=== PATIENT | female | born 1965 | race Caucasian/White ===

== ENCOUNTER 2019-02-12 10:56 | Outpatient (CLI) | payer OTHER, SELFPAY ==
[2019-02-12 11:31] LABS: HCT 39.8 % (36.0-46.0); HGB 13.3 g/dL (12.0-15.5); Mean Corp. HGB Concentration 33.4 g/dL (32.0-36.0); Mean Corpuscular Hemoglobin 29.2 pg (27.0-33.0); Mean Corpuscular Volume 87.3 fL (80-95); Mean Platelet Volume 10.2 fL (8.0-11.0); Platelet Count 274 x1000/uL (130-400); RBC 4.56 m/cumm (4.00-5.20); RBC Distribution Width 12.7 % (11.7-14.6); White Blood Cell Count 5.91 k/cumm (4.4-10.8)
[2019-02-12 12:22] LABS: ALT 28 U/L (12-78); AST 19 U/L (15-37); Albumin 3.7 g/dL (3.4-5.0); Alkaline Phosphatase 83 U/L (46-116); Anion Gap 7.8 mmol/L (3-11); BUN 15 mg/dL (7-18); Bilirubin, Total 0.5 mg/dL (0.2-1.0); C-Reactive Protein 0.88 mg/dL (0.0-0.3); CO2 29.2 mmol/L (21.0-32.0); Chloride 102 mmol/L (98-107); Glucose 88 mg/dL (70-100); Potassium 3.5 mmol/L (3.5-5.1); Sodium 139 mmol/L (136-145); Total Protein 6.8 g/dL (6.4-8.2)
[2019-02-12 13:18] LABS: ESR 20 MM/HR (0-30)
== END 2019-02-12 11:16 ==
PROVIDERS: PCP Family Medicine; Visit Provider Internal Medicine Rheumatology
DX: M45.9 Ankylosing spondylitis of unspecified sites in spine (principal); Z79.899 Other long term (current) drug therapy
CPT/HCPCS: 36415; 80053; 85027; 85652; 86140

== ENCOUNTER 2019-07-12 10:30 | Outpatient (CLI) | payer OTHER, SELFPAY ==
[2019-07-12 15:39] LABS: Abs Immature Grans 0.01 k/cumm (0.0-0.09); Absolute Basophil Count 0.03 k/cumm (0.0-0.2); Absolute Eosinophil Count 0.12 k/cumm (0.0-0.7); Absolute Lymphocyte Count 1.53 k/cumm (1.2-3.4); Absolute Monocyte Count 0.65 k/cumm (0.11-0.7); Basophils % 0.5; HCT 38.6 % (36.0-46.0); HGB 12.9 g/dL (12.0-15.5); Immature Grans % 0.2; Lymphocytes % 25.3; Mean Corp. HGB Concentration 33.4 g/dL (32.0-36.0); Mean Corpuscular Hemoglobin 30.4 pg (27.0-33.0); Mean Platelet Volume 10.3 fL (8.0-11.0); Monocytes % 10.8; Neutrophils % 61.2; Platelet Count 298 x1000/uL (130-400); RBC 4.24 m/cumm (4.00-5.20); RBC Distribution Width 13.2 % (11.7-14.6); White Blood Cell Count 6.04 k/cumm (4.4-10.8)
[2019-07-12 16:13] LABS: ALT 27 U/L (14-59); Albumin 3.6 g/dL (3.4-5.0); Alkaline Phosphatase 87 U/L (46-116); Anion Gap 6.7 mmol/L (3-11); BUN 13 mg/dL (7-18); Bilirubin, Total 0.2 mg/dL (0.2-1.0); CO2 31.3 mmol/L (21.0-32.0); CREATININE 0.63 mg/dL (0.55-1.02); Calcium 8.5 mg/dL (8.5-10.1); Chloride 105 mmol/L (98-107); Glucose 82 mg/dL (70-100); Sodium 143 mmol/L (136-145); Total Protein 6.6 g/dL (6.4-8.2)
[2019-07-12 16:45] LABS: AST 30 U/L (15-37)
== END 2019-07-12 10:50 ==
PROVIDERS: PCP Family Medicine; Visit Provider Internal Medicine Rheumatology
DX: M45.9 Ankylosing spondylitis of unspecified sites in spine (principal); Z15.89 Genetic susceptibility to other disease; Z79.899 Other long term (current) drug therapy
CPT/HCPCS: 36415; 80053; 85025

== ENCOUNTER 2019-08-11 00:50 | Outpatient (CLI) | payer OTHER, SELFPAY ==
[2019-08-11 08:05] LABS: Abs Immature Grans 0.01 k/cumm (0.0-0.09); Absolute Basophil Count 0.04 k/cumm (0.0-0.2); Absolute Eosinophil Count 0.09 k/cumm (0.0-0.7); Absolute Lymphocyte Count 1.35 k/cumm (1.2-3.4); Absolute Monocyte Count 0.66 k/cumm (0.11-0.7); Absolute Neutrophil Count 2.74 k/cumm (1.2-6.7); Basophils % 0.8; Eosinophils % 1.8; HCT 40.5 % (36.0-46.0); HGB 13.6 g/dL (12.0-15.5); Immature Grans % 0.2; Lymphocytes % 27.6; Mean Corp. HGB Concentration 33.6 g/dL (32.0-36.0); Mean Corpuscular Hemoglobin 30.2 pg (27.0-33.0); Mean Platelet Volume 9.8 fL (8.0-11.0); Monocytes % 13.5; Neutrophils % 56.1; Platelet Count 277 x1000/uL (130-400); RBC Distribution Width 12.7 % (11.7-14.6); White Blood Cell Count 4.89 k/cumm (4.4-10.8)
[2019-08-11 10:20] LABS: Anion Gap 8.1 mmol/L (3-11); BUN 12 mg/dL (7-18); CO2 29.9 mmol/L (21.0-32.0); CREATININE 0.64 mg/dL (0.55-1.02); Calculated LDL 138 mg/dL; Chloride 103 mmol/L (98-107); Cholesterol 204 mg/dL (<200); Glucose 89 mg/dL (74-106); HDL Cholesterol 39 mg/dL (40-60); Potassium 3.6 mmol/L (3.5-5.1); Sodium 141 mmol/L (136-145); Triglyceride 137 mg/dL (<150)
[2019-08-11 18:28] LABS: Vitamin D 25 Total 40.8 ng/ml (30-100)
== END 2019-08-11 01:10 ==
PROVIDERS: PCP Family Medicine; Visit Provider Family Medicine
DX: Z00.00 Encounter for general adult medical examination without abnormal findings (principal); E78.5 Hyperlipidemia, unspecified; E55.9 Vitamin D deficiency, unspecified; M45.9 Ankylosing spondylitis of unspecified sites in spine
CPT/HCPCS: 36415; 80048; 80061; 82306; 85025

== ENCOUNTER 2020-10-31 03:26 | Outpatient (CLI) | payer OTHER, SELFPAY ==
[2020-10-31 08:49] LABS: Abs Immature Grans 0.01 10^3/uL (0.0-0.06); Absolute Basophil Count 0.05 10^3/uL (0.0-0.2); Absolute Eosinophil Count 0.08 10^3/uL (0.0-0.7); Absolute Lymphocyte Count 1.66 10^3/uL (1.2-3.4); Absolute Monocyte Count 0.65 10^3/uL (0.1-0.8); Absolute Neutrophil Count 2.61 10^3/uL (1.2-6.7); Eosinophils % 1.6; HCT 44.9 % (36.0-46.0); HGB 14.5 g/dL (11.2-15.7); Immature Grans % 0.2; Lymphocytes % 32.8; MCH 29.2 pg (27.0-33.0); MCHC 32.3 % (32.0-36.0); MCV 90.3 fL (80-95); MPV 9.8 fL (8.0-11.0); Monocytes % 12.8; Neutrophils % 51.6; Nucleated RBC 0 %; Platelet Count 326 10^3/uL (130-400); RBC 4.97 10^6/uL (3.93-5.22); RDW 12.4 % (11.7-14.6); RDW-SD 40.4 fL; WBC 5.06 10^3/uL (4.4-10.8)
[2020-10-31 09:09] LABS: Anion Gap 2.4 mmol/L (3-11); BUN 15 mg/dL (7-18); CO2 33.6 mmol/L (21.0-32.0); CREATININE 0.7 mg/dL (0.55-1.02); Calcium 9.4 mg/dL (8.5-10.1); Calculated LDL 136 mg/dL (<100); Chloride 103 mmol/L (98-107); Cholesterol 208 mg/dL (<200); Glucose 97 mg/dL (74-106); HDL Cholesterol 53 mg/dL (40-60); Potassium 3.8 mmol/L (3.5-5.1); Sodium 139 mmol/L (136-145); Triglyceride 96 mg/dL (<150)
[2020-11-01 10:16] LABS: Hepatitis C Ab w Rflx HCV PCR Negative (Negative)
== END 2020-10-31 03:27 | disposition home or self-care (01) ==
LOC: LBO 03:26
PROVIDERS: PCP Family Medicine; Visit Provider Family Medicine
DX: Z00.00 Encounter for general adult medical examination without abnormal findings (principal); Z72.89 Other problems related to lifestyle; Z13.220 Encounter for screening for lipoid disorders; Z11.59 Encounter for screening for other viral diseases
CPT/HCPCS: 36415; 80048; 80061; 86803; 85025

== ENCOUNTER 2021-11-08 02:04 | Outpatient (CLI) | payer BC, SELFPAY ==
[2021-11-08 13:41] LABS: Abs Immature Grans 0.03 10^3/uL (0.0-0.06); Absolute Basophil Count 0.05 10^3/uL (0.0-0.2); Absolute Eosinophil Count 0.12 10^3/uL (0.0-0.7); Absolute Lymphocyte Count 1.71 10^3/uL (1.2-3.4); Absolute Monocyte Count 0.68 10^3/uL (0.1-0.8); Absolute Neutrophil Count 4.71 10^3/uL (1.2-6.7); Basophils % 0.7; ESR 9 mm/hr (0-30); Eosinophils % 1.6; HCT 40.3 % (36.0-46.0); Immature Grans % 0.4; Lymphocytes % 23.4; MCHC 32.3 % (32.0-36.0); MPV 9.7 fL (8.0-11.0); Monocytes % 9.3; Neutrophils % 64.6; Nucleated RBC 0 %; Platelet Count 291 10^3/uL (130-400); RBC 4.48 10^6/uL (3.93-5.22); RDW-SD 39.6 fL
[2021-11-08 14:31] LABS: ALT 29 U/L (14-59); AST 24 U/L (15-37); Albumin 3.9 g/dL (3.4-5.0); Alkaline Phosphatase 85 U/L (46-116); Anion Gap 5.7 mmol/L (3-11); BUN 19 mg/dL (7-18); Bilirubin, Total 0.3 mg/dL (0.2-1.0); C-Reactive Protein 0.53 mg/dL (0.0-0.3); CO2 31.3 mmol/L (21.0-32.0); Calcium 8.9 mg/dL (8.5-10.1); Chloride 104 mmol/L (98-107); Estimated GFR 57.15 (mL/min/1.73m2); Glucose 101 mg/dL (74-106); Potassium 3.8 mmol/L (3.5-5.1); Sodium 141 mmol/L (136-145); Total Protein 6.9 g/dL (6.4-8.2)
== END 2021-11-08 02:05 | disposition home or self-care (01) ==
PROVIDERS: PCP Family Medicine; Visit Provider Internal Medicine Rheumatology
DX: M45.9 Ankylosing spondylitis of unspecified sites in spine (principal); Z15.89 Genetic susceptibility to other disease
CPT/HCPCS: 36415; 80053; 85652; 85025; 86140

== ENCOUNTER 2022-10-31 01:24 | Outpatient (CLI) | payer BC, SELFPAY ==
[2022-10-31 12:29] LABS: Abs Immature Grans 0.03 10^3/uL (0.0-0.06); Absolute Basophil Count 0.06 10^3/uL (0.0-0.2); Absolute Eosinophil Count 0.08 10^3/uL (0.0-0.7); Absolute Monocyte Count 0.79 10^3/uL (0.1-0.8); Absolute Neutrophil Count 3.42 10^3/uL (1.2-6.7); Eosinophils % 1.4; HCT 46.8 % (36.0-46.0); HGB 15.1 g/dL (11.2-15.7); Immature Grans % 0.5; Lymphocytes % 24.2; MCH 29.2 pg (27.0-33.0); MCHC 32.3 % (32.0-36.0); MCV 91 fL (80-95); MPV 10.6 fL (8.0-11.0); Monocytes % 13.7; Neutrophils % 59.2; Platelet Count 339 10^3/uL (130-400); RBC 5.17 10^6/uL (3.93-5.22); RDW 12.4 % (11.7-14.6); WBC 5.78 10^3/uL (4.4-10.8)
[2022-10-31 13:03] LABS: ALT 37 U/L (14-59); AST 27 U/L (15-37); Albumin 4.1 g/dL (3.4-5.0); Alkaline Phosphatase 76 U/L (46-116); Anion Gap 7.1 mmol/L (3-11); BUN 16 mg/dL (7-18); Bilirubin, Total 0.5 mg/dL (0.2-1.0); CO2 30.9 mmol/L (21.0-32.0); CREATININE 0.7 mg/dL (0.55-1.02); Calcium 9.4 mg/dL (8.5-10.1); Calculated LDL 131 mg/dL (<100); Chloride 103 mmol/L (98-107); Cholesterol 206 mg/dL (<200); Estimated GFR 100.19 (mL/min/1.73m2); Glucose 91 mg/dL (74-106); HDL Cholesterol 48 mg/dL (40-60); Potassium 3.4 mmol/L (3.5-5.1); Sodium 141 mmol/L (136-145); Total Protein 7.6 g/dL (6.4-8.2); Triglyceride 139 mg/dL (<150)
[2022-10-31 13:16] LABS: Vitamin D 25 Total 60.6 ng/mL (30-100)
== END 2022-10-31 01:25 | disposition home or self-care (01) ==
LOC: LOS 01:24
PROVIDERS: PCP Family Medicine; Visit Provider Family Medicine
DX: E78.5 Hyperlipidemia, unspecified (principal); M45.9 Ankylosing spondylitis of unspecified sites in spine; E04.9 Nontoxic goiter, unspecified; E55.9 Vitamin D deficiency, unspecified
CPT/HCPCS: 36415; 80053; 80061; 82306; 84439; 84443; 85025

== ENCOUNTER 2023-06-06 01:57 | Outpatient (CLI) | payer BC, SELFPAY ==
[2023-06-06 07:27] LABS: Abs Immature Grans 0.02 10^3/uL (0.0-0.06); Absolute Basophil Count 0.06 10^3/uL (0.0-0.2); Absolute Eosinophil Count 0.13 10^3/uL (0.0-0.7); Absolute Lymphocyte Count 1.59 10^3/uL (1.2-3.4); Absolute Neutrophil Count 3.33 10^3/uL (1.2-6.7); Eosinophils % 2.2; HCT 41.8 % (36.0-46.0); HGB 14.2 g/dL (11.2-15.7); Immature Grans % 0.3; Lymphocytes % 27.3; MCH 29.7 pg (27.0-33.0); MCV 87 fL (80-95); MPV 9.9 fL (8.0-11.0); Neutrophils % 57.2; Platelet Count 277 10^3/uL (130-400); RBC 4.78 10^6/uL (3.93-5.22); RDW 12.2 % (11.7-14.6); RDW-SD 39.1 fL; WBC 5.83 10^3/uL (4.4-10.8)
[2023-06-06 07:32] LABS: ESR 10 mm/hr (0-30)
[2023-06-06 07:58] LABS: ALT 24 U/L (14-59); AST 19 U/L (15-37); Albumin 3.7 g/dL (3.4-5.0); Alkaline Phosphatase 87 U/L (46-116); Anion Gap 7.8 mmol/L (3-11); BUN 16 mg/dL (7-18); Bilirubin, Total 0.3 mg/dL (0.2-1.0); C-Reactive Protein 0.51 mg/dL (0.0-0.3); CO2 30.2 mmol/L (21.0-32.0); CREATININE 0.8 mg/dL (0.55-1.02); Calcium 9.6 mg/dL (8.5-10.1); Chloride 102 mmol/L (98-107); Estimated GFR 85.35 (mL/min/1.73m2); Glucose 98 mg/dL (74-106); Potassium 3.3 mmol/L (3.5-5.1); Sodium 140 mmol/L (136-145); Total Protein 7.4 g/dL (6.4-8.2)
== END 2023-06-06 01:58 | disposition home or self-care (01) ==
LOC: LBO 01:57
PROVIDERS: PCP Family Medicine; Visit Provider Internal Medicine Rheumatology
DX: M45.9 Ankylosing spondylitis of unspecified sites in spine (principal); M81.0 Age-related osteoporosis without current pathological fracture; Z15.89 Genetic susceptibility to other disease; Z79.899 Other long term (current) drug therapy
CPT/HCPCS: 36415; 80053; 85652; 85025; 86140

== ENCOUNTER 2023-06-30 15:35 | Outpatient (REF) | payer BC, SELFPAY ==
--- NOTE | 2023-06-30 18:15 | PAPFT_PTH ---
PATIENT: Clara Zamora LOC: [facility] U#:[id number] AGE/SX: 57/F ROOM: RE06/30/[address]: Pati Wilson APRN : 1965 BED: DIS: 06/30/2023 SPEC #: [id number] RECD: 07/01/23 17:57 STATUS: EUGENIA REQ #: [id number] CHRIS: 06/30/23 18:[address]: Pati Wilson DEPT: [facility] Cytology RECD BY: Paula Mcdonald Tissues: 1 - CX/ENDOCX FOR PAP SMEARS Procedures: PAP THIN PREP/UVM Screening HPV DNA PROBE Comments: [id number]
== END 2023-06-30 15:36 | disposition home or self-care (01) ==
LOC: LBN 15:35
PROVIDERS: PCP Nurse Practitioner; Visit Provider Nurse Practitioner
DX: Z12.4 Encounter for screening for malignant neoplasm of cervix (principal); Z11.51 Encounter for screening for human papillomavirus (HPV)
CPT/HCPCS: 88142; 87624

== ENCOUNTER 2023-10-06 13:23 | Outpatient (REF) | payer BC, SELFPAY | END 2023-10-06 13:24 | disposition home or self-care (01) | LOC: LBN 13:23 | PROVIDERS: PCP Nurse Practitioner; Visit Provider Nurse Practitioner Adult Health | DX: J02.9 Acute pharyngitis, unspecified (principal) | CPT/HCPCS: 87070 ==

== ENCOUNTER → 2023-10-28 02:53 | Outpatient (CLI) | payer BC, SELFPAY ==
--- NOTE | 2023-10-28 08:15 | DI.MAMMO_ITS ---
Exam(s) MAMMO SCREENING EXAM: MAMMO SCREENING CLINICAL HISTORY: screening,z12.39 TECHNIQUE: Mammograms were interpreted according to the usual protocol including computer analysis w [employer] CAD system, tomosynthesis and C-view imaging. COMPARISON: 2018 FINDINGS: The breasts are composed of heterogeneously dense fibroglandular densities, Breast Density category C . No suspicious masses or suspicious microcalcifications are seen. No skin thickening or abnormal axillary lymph nodes are seen. There has been no significant change from prior exams. IMPRESSION: BI-RADS Category 1, Negative mammogram. Yearly screening mammography is recommended. Breast Density Category C, heterogeneously Dense. The mammogram demonstrates the patient's breast tissue is dense. Dense breast tissue is very common a nd is not abnormal but dense breast tissue can make it harder to find cancer on a mammogram. Also, de nse breast tissue may increase breast cancer risk. This information about the result of the mammogram report was provided to the patient to raise their awareness. Use this report when you speak with the patient about their risks for breast cancer, which includes their family history. At that time, you may recommend additional screening tests (Ultrasound or MRI) as they might be useful based on their r isk. A negative radiographic report should not delay biopsy if a dominant or clinically suspicious mass is present. Up to ten percent of cancers are not identified on mammography. A negative report may reinforce clinical impression. Adenosis and dense breasts may obscure an underlying neoplasm. False positive reports average 6 to 10%.
== END ==
PROVIDERS: PCP Nurse Practitioner; Visit Provider Nurse Practitioner
DX: Z12.31 Encounter for screening mammogram for malignant neoplasm of breast (principal)
CPT/HCPCS: 77063; 77067

== ENCOUNTER 2024-01-09 01:22 | Outpatient (CLI) | payer BC, SELFPAY ==
[2024-01-09 14:17] LABS: Abs Immature Grans 0.04 10^3/uL (0.0-0.06); Absolute Basophil Count 0.05 10^3/uL (0.0-0.2); Absolute Eosinophil Count 0.13 10^3/uL (0.0-0.7); Absolute Lymphocyte Count 1.58 10^3/uL (1.2-3.4); Absolute Monocyte Count 0.72 10^3/uL (0.1-0.8); Absolute Neutrophil Count 4.59 10^3/uL (1.2-6.7); Basophils % 0.7; Eosinophils % 1.8; HCT 41.6 % (36.0-46.0); HGB 13.5 g/dL (11.2-15.7); Immature Grans % 0.6; Lymphocytes % 22.2; MCHC 32.5 % (32.0-36.0); MCV 89 fL (80-95); MPV 9.5 fL (8.0-11.0); Monocytes % 10.1; Neutrophils % 64.6; Platelet Count 334 10^3/uL (130-400); RBC 4.66 10^6/uL (3.93-5.22); RDW-SD 39.5 fL; WBC 7.11 10^3/uL (4.4-10.8)
[2024-01-09 15:34] LABS: ALT 27 U/L (14-59); AST 24 U/L (15-37); Albumin 3.5 g/dL (3.4-5.0); Alkaline Phosphatase 90 U/L (46-116); Anion Gap 7.5 mmol/L (3-11); BUN 15 mg/dL (7-18); Bilirubin, Total 0.3 mg/dL (0.2-1.0); CO2 31.5 mmol/L (21.0-32.0); CREATININE 0.7 mg/dL (0.55-1.02); Calcium 9.3 mg/dL (8.5-10.1); Chloride 104 mmol/L (98-107); Estimated GFR 99.57 (mL/min/1.73m2); Glucose 97 mg/dL (74-106); Sodium 143 mmol/L (136-145); Total Protein 7.4 g/dL (6.4-8.2)
== END 2024-01-09 01:23 | disposition home or self-care (01) ==
LOC: LBO 01:22
PROVIDERS: PCP Nurse Practitioner; Visit Provider Internal Medicine Rheumatology
DX: Z15.89 Genetic susceptibility to other disease (principal); M45.9 Ankylosing spondylitis of unspecified sites in spine; Z79.899 Other long term (current) drug therapy
CPT/HCPCS: 36415; 80053; 85025

== ENCOUNTER 2024-08-05 03:10 | Outpatient (CLI) | payer BC, SELFPAY ==
[2024-08-05 16:48] LABS: ESR 6 mm/hr (0-30)
[2024-08-05 16:49] LABS: Abs Immature Grans 0.01 10^3/uL (0.0-0.06); Absolute Basophil Count 0.06 10^3/uL (0.0-0.2); Absolute Eosinophil Count 0.15 10^3/uL (0.0-0.7); Absolute Lymphocyte Count 1.65 10^3/uL (1.2-3.4); Absolute Monocyte Count 0.61 10^3/uL (0.1-0.8); Absolute Neutrophil Count 3.91 10^3/uL (1.2-6.7); Basophils % 0.9 %; Eosinophils % 2.3 %; HCT 42.4 % (36.0-46.0); HGB 13.9 g/dL (11.2-15.7); Immature Grans % 0.2 %; Lymphocytes % 25.8 %; MCH 28.6 pg (27.0-33.0); MCHC 32.8 % (32.0-36.0); MCV 87 fL (80-95); MPV 9.8 fL (8.0-11.0); Monocytes % 9.5 %; Neutrophils % 61.3 %; Platelet Count 336 10^3/uL (130-400); RBC 4.86 10^6/uL (3.93-5.22); RDW 12.8 % (11.7-14.6); RDW-SD 40.3 fL; WBC 6.39 10^3/uL (4.4-10.8)
[2024-08-05 17:53] LABS: ALT 23 U/L (14-59); AST 24 U/L (15-37); Albumin 3.8 g/dL (3.4-5.0); Alkaline Phosphatase 121 U/L (46-116); Anion Gap 4.3 mmol/L (3-11); BUN 17 mg/dL (7-18); Bilirubin, Total 0.28 mg/dL (0.2-1.0); C-Reactive Protein 0.84 mg/dL (<or=0.5); CO2 32.7 mmol/L (21.0-32.0); CREATININE 0.8 mg/dL (0.55-1.02); Calcium 9.3 mg/dL (8.5-10.1); Chloride 105 mmol/L (98-107); Estimated GFR 84.82 (mL/min/1.73m2); Glucose 91 mg/dL (74-106); Potassium 3.4 mmol/L (3.5-5.1); Sodium 142 mmol/L (136-145); Total Protein 7.7 g/dL (6.4-8.2)
== END 2024-08-05 03:11 | disposition home or self-care (01) ==
LOC: LBO 03:10
PROVIDERS: PCP Nurse Practitioner; Visit Provider Internal Medicine Rheumatology
DX: Z79.899 Other long term (current) drug therapy (principal)
CPT/HCPCS: 36415; 80053; 85652; 85025; 86140

== ENCOUNTER 2024-09-28 02:52 | Outpatient (CLI) | payer BC, SELFPAY ==
--- NOTE | 2024-09-28 15:41 | DI.RAD_ITS ---
Exam(s) XR KNEE RT 3V AP,LAT,ROHAN EXAM: XR KNEE RT 3V AP,LAT,ROHAN CLINICAL HISTORY: right knee pain,M25.561,ANKYLOSING [id number]. TECHNIQUE: 2D digital imaging was performed of the right knee. Three views obtained. AP, lateral an d PA tunnel views were obtained. COMPARISON: No exams were available for comparison FINDINGS: BONES: No acute fracture is present. No bony destructive lesion is seen. JOINTS: In the medial femoral tibial joint there is joint space narrowing and osteophytes present. T he articular surfaces are otherwise well maintained. There is a very small joint effusion. SOFT TISSUE: Normal. IMPRESSION: Osteoarthritis seen in the right knee. DATA REPOSITORY: RADIATION DOSE DELIVERED:
== END 2024-09-28 03:12 ==
PROVIDERS: PCP Nurse Practitioner; Visit Provider Nurse Practitioner
DX: M25.561 Pain in right knee (principal)
CPT/HCPCS: 73562

== ENCOUNTER 2024-11-02 02:40 | Outpatient (CLI) | payer BC, SELFPAY ==
--- NOTE | 2024-11-02 07:30 | DI.MAMMO_ITS ---
Exam(s) MAMMO SCREENING EXAM: MAMMO SCREENING CLINICAL HISTORY: screening,z12.39 TECHNIQUE: Bilateral full field digital CC and MLO mammographic images were obtained with 3D tomosyn thesis and utilizing computer aided detection (CAD). COMPARISON: Available for comparison. FINDINGS: Masses/Architectural Distortion: None seen. Microcalcifications: No suspicious pleomorphic-type are seen. Skin Thickening/Nipple Retraction: None. IMPRESSION: 1. No significant interval change with no specific features of malignancy noted. 2. Unless there is more urgent need, screening mammography is recommended, as per [employer] guidelines. BI-RADS Category 1 - Negative Breast Density - Category C - Heterogeneously dense Breast density category C or D implies that the patient has dense breast tissue. Dense breast tissue is very common and is not abnormal but dense breast tissue can make it harder to find cancer on a ma mmogram. Also, dense breast tissue may increase their breast cancer risk. This information about the result of the mammogram report was provided to the patient to raise their awareness. Use this report when you speak with the patient about their risks for breast cancer, which includes their family hist ory. At that time, you may recommend for more screening tests (Ultrasound or MRI) as they might be us eful based on their risk. A negative radiographic report should not delay biopsy if a dominant or clinically suspicious mass is present. Up to ten percent of cancers are not identified on mammography. A negative report may reinforce clinical impression. Adenosis and dense breasts may obscure an underlying neoplasm. False positive reports average 6 to 10%. Patient will receive a letter notifying them of these results.
== END 2024-11-02 03:00 ==
LOC: DI 02:40
PROVIDERS: PCP Nurse Practitioner; Visit Provider Nurse Practitioner
DX: Z12.31 Encounter for screening mammogram for malignant neoplasm of breast (principal); R92.333 Mammographic heterogeneous density, bilateral breasts
CPT/HCPCS: 77063; 77067

== ENCOUNTER 2025-05-09 04:37 | Outpatient (CLI) | payer BC, SELFPAY ==
[2025-05-09 11:05] LABS: ESR 4 mm/hr (0-30)
[2025-05-09 11:06] LABS: HCT 42.3 % (36.0-46.0); HGB 13.6 g/dL (11.2-15.7); MCH 28.6 pg (27.0-33.0); MCHC 32.2 % (32.0-36.0); MCV 89 fL (80-95); MPV 9.7 fL (8.0-11.0); Platelet Count 300 10^3/uL (130-400); RBC 4.75 10^6/uL (3.93-5.22); RDW 12.2 % (11.7-14.6); RDW-SD 40.0 fL; WBC 7.40 10^3/uL (4.4-10.8)
[2025-05-09 11:49] LABS: Anion Gap 7.1 mmol/L (3-11); BUN 20 mg/dL (7-18); CO2 30.9 mmol/L (21.0-32.0); Calcium 9.4 mg/dL (8.5-10.1); Chloride 102 mmol/L (98-107); Estimated GFR 98.95 (mL/min/1.73m2); Glucose 95 mg/dL (74-106); Potassium 4.0 mmol/L (3.5-5.1); Sodium 140 mmol/L (136-145)
[2025-05-09 11:54] LABS: C-Reactive Protein 0.63 mg/dL (<or=0.5)
[2025-05-09 12:32] LABS: Vitamin D 25 Total 44 ng/mL (30-100)
== END 2025-05-09 04:38 | disposition home or self-care (01) ==
LOC: LBO 04:37
PROVIDERS: Nurse Practitioner Family; PCP Nurse Practitioner; Visit Provider Student in an Organized Health Care Education/Training Program
DX: M17.11 Unilateral primary osteoarthritis, right knee (principal); Z01.818 Encounter for other preprocedural examination; Z15.89 Genetic susceptibility to other disease; M45.9 Ankylosing spondylitis of unspecified sites in spine; M85.80 Other specified disorders of bone density and structure, unspecified site
CPT/HCPCS: 36415; 80048; 82306; 85027; 85652; 86140

== ENCOUNTER 2025-05-09 11:10 | Outpatient (CLI) | payer BC, SELFPAY ==
--- NOTE | 2025-05-09 10:00 | DI.RAD_ITS ---
Exam(s) XR KNEE RT 1V XR STANDING ALIGNMENT EXAM: XR STANDING ALIGNMENT and XR knee RT 1 V CLINICAL HISTORY: PRE OP R KNEE. TECHNIQUE: 2D digital imaging was performed. Five images were obtained. COMPARISON: CR XR KNEE RT 3V AP,LAT,ROHAN from 09/28/2024 FINDINGS: BONES: The hips are well maintained. In the right knee there is marked narrowing of the medial femoral tibial joint. There is mild spurring of the posterior patella and the medial femoral tibial joint. There is a small joint effusion. In the left knee, there is mild narrowing and spurring in the medial femoral tibial joint. The ankles are well maintained.There is no significant leg length discrepancy. SOFT TISSUE: Normal. IMPRESSION: Osteoarthritis of the knees, right greater than left. DATA REPOSITORY: RADIATION DOSE DELIVERED:
== END 2025-05-09 11:11 | disposition home or self-care (01) ==
LOC: DIORS 11:10
PROVIDERS: PCP Nurse Practitioner; Visit Provider Physician Assistant
DX: M17.11 Unilateral primary osteoarthritis, right knee (principal)
CPT/HCPCS: 73560; 77073

== ENCOUNTER 2025-05-17 11:53 | Day surgery (SDC) | payer BC, SELFPAY ==
--- NOTE | 2025-05-17 07:22 | PDOC.DSDIS_ITS ---
Date of service: 05/17/25 Discharge Plan Disposition Patient Disposition: Home Condition: Good Discharge Details Reason For Visit: Right knee DJD Attending Provider: Tray Sewell Primary Care Provider: Pati Wilson Home Meds and New Rx's Prescriptions: New acetaminophen 500 mg tablet 1,000 mg PO Q8H PRN Qty: 90 0RF Rx Instructions: Take two tablets up to every 8 hours as needed for pain aspirin 81 mg tablet,delayed release (DR/EC) 81 mg PO BID 30 Days Qty: 60 0RF celecoxib [Celebrex] 200 mg capsule 200 mg PO BID PRNQty: 60 0RF Rx Instructions: Take one tablet twice daily for pain and inflammation docusate sodium [Colace] 100 mg capsule 100 mg PO BID Qty: 28 0RF dexamethasone 4 mg tablet 4 mg PO DAILY Qty: 2 0RF Rx Instructions: Take one tablet once daily for two days gabapentin 300 mg capsule 300 mg PO QHS Qty: 14 0RF Rx Instructions: Take one tablet at bedtime oxycodone 5 mg tablet 5 mg PO Q4H PRNQty: 18 0RF Rx Instructions: Take one tablet up to every 4 hours as needed for severe postoperative pain Continued sulfasalazine 500 mg tablet,delayed release (DR/EC) 1 g PO BID Calcium 600 with Vitamin D3 600 mg-10 mcg (400 unit) tablet,chewable 1 tab PO DAILY L-qlutamine 500 mg 500 mg PO DAILY magnesium 1 tab PO DAILY suzetrigine 50 mg tablet 50 mg PO DAILY PRN Multi Complete with Iron 1 EACH tablet 1 tab-cap PO DAILY solifenacin 5 mg tablet See Rx Instructions .ROUTE .COMPLEX Qty: 90 3RF Dose Instruction: TAKE 1 TABLET BY MOUTH DAILY Rx Instructions: TAKE 1 TABLET BY MOUTH DAILY diclofenac sodium 1 % gel 2 g topical QID PRN omeprazole 20 mg capsule,delayed release(DR/EC) See Rx Instructions .ROUTE .COMPLEX Qty: 90 3RF Dose Instruction: TAKE 1 CAPSULE BY MOUTH DAILY Rx Instructions: TAKE 1 CAPSULE BY MOUTH DAILY Discontinued celecoxib [Celebrex] 100 mg capsule 100 mg PO BID Discharge Instructions Additional Instructions: Total Knee Discharge Instructions Activity: The most important activity is to walk and to work on gentle motion (both flexion and extension). You should try to take short walks a few times a day. It is important that when resting you work on keeping the knee straight. Avoid putting a pillow behind the knee as this will encourage flexion. Work on range of motion exercises as provided by Physical Therapy. - Start outpatient physical therapy within 2 weeks. - You should wear the VELASQUEZ hose on both legs for 2 weeks. You may remove these at night. You may also use any compression sock in place of the VELASQUEZ hose. - Utilize [employer] to review exercises, see videos on exercises and obtain basic information pertaining to your surgery and your recovery. Dressing: Remove the Jose Miguel wrap by 2 days after your surgery and put on the VELASQUEZ stocking given to you from the hospital. Keep the surgical dressing (underneath the JOSE MIGUEL wrap) in place for at least one week. After the first week it may be removed and replaced with light gauze and tape or nothing. The wound and dressing may get wet after 3 days but avoid soaking the dressing or otherwise it will need to be changed. Many people prefer covering the dressing with cling wrap (saran wrap) to minimize it from getting soaked. If it gets wet, just pat dry. If it starts to peel off then it will need to be changed. Medications: - You should take Tylenol and anti-inflammatory Celebrex as your primary pain control medications. If the Celebrex is too expensive or not covered, please call the office for another alternative (Advil/Ibuprofen or Naproxen/Aleve) - You have been prescribed a stronger pain medication Oxycodone for breakthrough pain, take as needed as prescribed. - You take a stomach acid reduction agent Omeprazole at baseline - continue with this medication to help reduce stomach acid and reflux. - You have been prescribed Gabapentin to take at night for restlessness and nerve pain. - You will be taking Aspirin 81mg twice a day for DVT prevention unless instructed otherwise. - You have also been prescribed Decadron to take to control post-operative nausea and pain. You will start this tomorrow. - If you have constipation you should take Colace (which has been prescribed) or Miralax (which is available [id number]). It takes most people 3-4 days to have a bowel movement. Follow-up: 2 weeks If you have any acute concerns or questions, please do not hesitate to contact the office at [phone]. You may contact Dr. Sewell with any questions after hours through the hospital at [phone] or on his cell phone at [phone]. Referrals: Tray Sewell MD [ [facility] STAFF PHYSICIAN, Orthopaedic Surgical] Equipment/Supplies: Walker Activity:: Elevate Remove Dressings/Wound Care:: Do Not Remove Shower/Bathe:: Cover Diet:: As Tolerated Discharge Orders Discharge Orders: Discharge Order (Routine); Ordered 05/17/25 Ordered By: Kelsey Thomas
[2025-05-17 12:14] VITALS: BP 117/61; PULSE 73; RESP 14; TEMP 36.9; O2SAT 97
[2025-05-17] MEDS: Gabapentin 300 MG CAP PO (12:42)
[2025-05-17] MEDS: Acetaminophen 500 MG TAB 1000 MG PO (12:42)
[2025-05-17] MEDS: Celecoxib 200 MG CAP 400 MG PO (12:42)
[2025-05-17] MEDS: Lactated Ringers 1,000 ML 80 ML IV (12:53)
--- NOTE | 2025-05-17 13:29 | ANES.PREOP_ITS ---
General Info Date of Service Date Performed: 05/17/25 Height: 5 ft 5 in Weight: 60.6 kg Body Mass Index (BMI): 22.2 Surgical Procedure: Operation Date: 05/17/25 15:10 Proposed Procedure Side Surgeon p Knee Total Arthroplasty Right Tray Sewell MD Meds Allergies and Home Medications Allergies Allergy/AdvReac Type Severity Reaction Status Date / Time indomethacin AdvReac GI UPSET Verified 05/17/25 12:05 Home Medication ?Medication ?Instructions ?Recorded multivitamin-ferrous 1 tab-cap PO DAILY 04/07/13 fumarate-folic acid 18 mg-400 mcg tablet (Multi Complete with Iron) sulfasalazine 500 mg 1 g PO BID 05/05/23 tablet,delayed release calcium 600 mg (as carbonate)-vit 1 tab PO DAILY 06/30 D3 10 mcg (400 unit) chewable tablet (Calcium 600 with Vitamin D3) magnesium 1 tab PO DAILY 07/05/24 solifenacin 5 mg tablet See Rx Instructions .Route 1 10/17/23 .COMPLEX #90 tabs celecoxib 100 mg capsule (Celebrex) 100 mg PO BID 09/15 12/07 diclofenac sodium 1 % topical gel 2 g topical QID PRN 11/02/24 omeprazole 20 mg capsule,delayed See Rx Instructions . Route 11/15/24 release .COMPLEX #90 caps L-qlutamine 500 mg PO DAILY Stomach issu es 01/04/25 suzetrigine 50 mg tablet 50 mg PO DAILY PRN 05/09/25 Current Visit Medications: Current Medications Generic Name Dose Route Start Last Admin Trade Name Freq PRN Reason Stop Dose Admin Acetaminophen 1,000 mg 05/17/25 06:00 05/17/25 12:42 Acetaminophen 500 Mg Tab PO 05/17/25 23:59 1,000 mg PREOP CARLOS ALBERTO Administration Celecoxib 400 mg 05/17/25 06:00 05/17/25 12:42 Celecoxib 200 Mg Cap PO 05/17/25 23:59 400 mg PREOP CARLOS ALBERTO Administration Droperidol 0.625 mg 05/17/25 12:21 Droperidol 5 Mg/2 Ml Vial IVP 06/16/25 12:20 DIRECTED PRN Ephedrine Sulfate 0 mg 05/17/25 12:21 Ephedrine 25 Mg/5 Ml Syringe IVP 06/16/25 12:20 DIRECTED PRN Fentanyl 0 mcg 05/17/25 12:21 Fentanyl 100 Mcg/2 Ml Vial IVP 06/16/25 12:20 DIRECTED PRN Gabapentin 300 mg 05/17/25 06:00 05/17/25 12:42 Gabapentin 300 Mg Cap PO 05/17/25 23:59 300 mg PREOP CARLOS ALBERTO Administration Hydromorphone HCl 0.5 mg 05/17/25 07:20 Hydromorphone 2 Mg/Ml Syr IVP 06/16/25 07:19 Q2H PRN PRN Hydromorphone HCl 0 mg 05/17/25 12:21 Hydromorphone 2 Mg/Ml Syr IVP 06/16/25 12:20 DIRECTED PRN Ringer's Solution 1,000 mls @ 80 mls/hr 05/17/25 06:00 05/17/25 12:53 IV 05/17/25 23:59 80 mls/hr INFUSION CARLOS ALBERTO Administration Cefazolin Sodium/Dextrose 2 gm in 50 mls @ 100 mls/hr 05/17/25 06:00 Ancef Duplex IVPB 05/17/25 23:59 PREOP CARLOS ALBERTO Tranexamic Acid/Sodium Chloride 1,000 mg in 100 mls @ 600 mls/hr 05/17/25 06:00 IVPB 05/17/25 23:59 PREOP CARLOS ALBERTO Cefazolin Sodium/Dextrose 1 gm in 50 mls @ 100 mls/hr 05/17/25 20:00 Ancef Duplex IVPB 05/18/25 12:29 Q8H CARLOS ALBERTO IV Miscellaneous Supplies 1 each 05/17/25 06:00 Iv Access IV 05/17/25 23:59 DIRECTED CARLOS ALBERTO Naloxone HCl 0 mg 05/17/25 12:21 Naloxone 0.4 Mg/Ml Vial IVP 06/16/25 12:20 PRN PRN Oxycodone HCl 0 mg 05/17/25 07:20 Oxycodone 5 Mg Tab PO 06/16/25 07:19 Q3H PRN PRN Pain Sodium Chloride 0 ml 05/17/25 06:00 Normal Saline Flush 10 Ml Syr IV 05/17/25 23:59 PRN PRN Sodium Chloride 0 ml 05/17/25 06:00 Normal Saline 10 Ml Vial IJ 05/17/25 23:59 DIRECTED PRN Sterile Water 0 ml 05/17/25 06:00 Water,Injection,Sterile 10 Ml Vial IJ 05/17/25 23:59 DIRECTED PRN Tranexamic Acid 1,300 mg 05/17/25 07:20 Tranexamic Acid 650 Mg Tab PO 06/16/25 07:19 ONCE PRN postoperative PFSH Active Problems Active Problems: Problem Status Onset Code History of total right knee replacement Acute 05/17/25 Z96.651 GERD (gastroesophageal reflux disease) Chronic K21.9 OAB (overactive bladder) Acute N32.81 HLA B27 (HLA B27 positive) Acute Z15.89 Ankylosing spondylitis Acute ~08/29/17 M45.9 Osteopenia Acute M85.80 Medical History Medical History Seborrheic keratosis Total urinary incontinence (10/04/11) Inflammatory arthritis (11/01/13) 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 + Esophagitis (06/14/14) Diarrhea (11/12/09) Vitamin D deficiency Surgical History Surgical History Status post tonsillectomy Status post cholecystectomy History of esophagogastroduodenoscopy Tonsillectomy AGE 14 EGD - MAC (~10/2013) Cholecystectomy (~2004) Biopsy of breast 1999 benign Tobacco Smoking/Tobacco Use Status: Never Passive smoking exposure: No Second hand exposure: No Alcohol Alcohol Intake: current Alcohol intake frequency: holidays/special occasions only Substance Use Substance use: Never Substance use type: does not use Vital Signs and Lab Results Vital Signs Most Recent Vital Signs in EMR: Most Recent Vital Signs Temp Pulse Resp BP Pulse Ox 36.9 C 73 14 117/61 97 05/17/25 12:14 05/17/25 12:14 05/17/25 12:14 05/17/25 12:14 05/17/25 12:14 Lab Results Complete Blood Count: WBC, (4.4-10.8) 7.40 10^3/uL 05/09/25, 11:00 RBC, (3.93-5.22) 4.75 10^6/uL 05/09/25, 11:00 Hgb, (11.2-15.7) 13.6 g/dL 05/09/25, 11:00 Hct, (36.0-46.0) 42.3 % 05/09/25, 11:00 Plt Count, (130-400) 300 10^3/uL 05/09/25, 11:00 Complete Metabolic Panel: Sodium, (136-145) 140 mmol/L 05/09/25, 11:00 Potassium, (3.5-5.1) 4.0 mmol/L 05/09/25, 11:00 Chloride, (98-107) 102 mmol/L 05/09/25, 11:00 Carbon Dioxide, (21.0-32.0) 30.9 mmol/L 05/09/25, 11 :00 BUN, (7-18) 20 mg/dL H 05/09/25, 11:00 Creatinine, (0.55-1.02) 0.7 mg/dL 05/09/25, 11:00 Est GFR (CKD-EPI 2020), (mL/min/1.73m2) 98.95 05/09/25, 11:00 Calcium, (8.5-10.1) 9.4 mg/dL 05/09/25, 11:00 Glucose, (74-106) 95 mg/dL 05/09/25, 11:00 C-Reactive Protein, (<or=0.5) 0.63 mg/dL H 05/09/25, 11:00 Anesthesia Assessment and Plan Anesthesia History Personal History: Delayed Emergence Family History: No Family History of Anesthesia Complications Exercise Tolerance Exercise Tolerance: Metabolic Equivalents>4 Pertinent Negatives Pertinent Negatives: No Symptoms of GERD Cardiac & Pulmonary Exam Cardiac Exam: Normal S1/S2 Heart Sounds Pulmonary Exam: Clear Bilateral Breath Sounds Implantable Cardiac Device Does patient have a Pacemaker or an ICD?: No Airway Exam Known Difficult Airway: No Mallampati Class: 2 Mouth Opening: Normal (> 3cm) Thyromental Distance: Greater than 3 cm Neck Range of Motion: Full ROM Neck Circumference: Normal Teeth Condition: Normal Dentition ASA Classification ASA Score: ASA 2 Emergency Case?: No NPO Status NPO Status: NPO Clears >2 hours, Solids >8 hours Anesthesia Plan Resuscitation Status: Full Code Anesthesia Technique: Spinal Anesthesia Airway Planned: Natural Airway Pain Management: Surgeon and patient request nerve block Monitors Used: Standard Monitors
[2025-05-17 13:30] VITALS: BMI 22.2
[2025-05-17 13:43] VITALS: BP 113/62; PULSE 71; RESP 19; TEMP 36.4; O2SAT 97
[2025-05-17] MEDS: ceFAZolin 2 GM/50 ML BAG IVPB (14:27)
[2025-05-17] MEDS: TRANEXAMIC ACID/SOD. CHL. 1,000 MG/100 ML BAG 600 MG IVPB (14:35)
--- NOTE | 2025-05-17 14:43 | W.ANESNERVE ---
Nerve Block Single Injection Procedure Date and Time Date Performed: 05/17/25 Procedure Start: 13:54 Location Where Procedure Performed Procedure Location: Day Surgery Unit Reason Performed: Postoperative Analgesia Requesting Provider: Tray Sewell Timeout Performed Timeout Performed: Yes Monitoring Used ECG, Blood Pressure, SpO2 and See EMR for corresponding vital signs Sterility Sterility: Hand Hygiene, Surgical Cap, Surgical Mask, Sterile Gloves, Eye Protection and Chlorhexidine Sedation Given During Procedure Sedation Given (Indicate Dose Given): Versed IV Dose:: 2mg IVP Patient Mental Status Patient Mental Status: Sedate with meaningful communication Nerve Block 1st Nerve Block: Laterality: Right Block Type: Adductor Canal Ultrasound Image Saved?: Yes Needle / Catheter Used: 100mm SonoPlex II Local Anesthetic Bolus (Indicate Dose Given): Lidocaine used for local infiltration of skin, Injected in 3-5ml increments after negative blood aspiration, Bupivacaine 0.5% Dose:: 10cc/0.5% (50mg) and Exparel Dose:: 10cc/1.3% (133mg) Additives (Indicate Dose Given): Epinephrine to make 1:200,000 (5mcg/ml) Dose:: 50mcg (added to 0.5% Bupiv.) Ultrasound: Sterile probe cover and gel used Nerve Stimulator: Not Used Paresthesia: None Procedure Tolerated: No Complications and Patient tolerated well Procedure Outcome: Successful Performed By: Logan Barker
--- NOTE | 2025-05-17 15:43 | ROE_ITS ---
Operative Note Operative Note PRE-OP DIAGNOSIS: Right Knee Osteoarthritis POST-OP DIAGNOSIS: same PROCEDURE: Right Total Knee Replacement SURGEON: Tray Sewell CHEMICAL RECLAMATION EQUIPMENT OPERATOR: Kelsey Thomas ANESTHESIA TYPE: Spinal Refer to Anesthesia Record ESTIMATED BLOOD LOSS: 50 PATHOLOGY: none sent TOURNIQUET TIME: 0 COMPLICATIONS: None Patient was transported to: PACU Patient's condition: stable Implants: 1. Depuy Attune Cementless Cruciate Retaining Femoral Component, Size 6 Narrow 2. Depuy Attune Cementless Fixed Bearing Tibial Component, Size 4 3. Depuy Attune 6x6mm CR/FB Poly Indications: I have seen Clara in clinic for symptoms of knee arthritis, confirmed with radiographic findings. She has exhausted nonoperative methods and was having significant limitations in daily function and desired better function and less pain. I discussed the technical details of a knee replacement. I explained the risks of the procedure to include, but not limited to, bleeding, infection, pain, stiffness, fracture, damage to nerves and vessels, damage to muscles and tendons, loosening, need for repeat procedure, blood clot and cardiopulmonary demise. Despite these risks, Clara elected to proceed. Findings: There was significant signs of arthritis throughout the medial compartment primarily with some very focal change about the lateral femur and trochlea. Procedure Description: Clara was greeted in the preoperative holding area where the correct side was identified and marked. The consent was reviewed with the patient and signed. The history and physical was updated. All questions were answered. Preoperative medications were administered: Acetaminophen 1000mg, Celebrex 400mg, and Gabapentin 300mg. An adductor canal block was then administered by the anesthesia team in the DSU. She was taken back to the operating room. A spinal anesthestic was then administered. The patient was placed into the supine position on the operating room table. Posts were placed for positioning during the procedure. All bony prominences were well padded. Prophylactic antibiotics in the form of Cefazolin were administered. 1g of Tranxemic Acid was given intravenously within 30 minutes of incision. The right leg was then prepped with Chloraprep and draped in a standard fashion with impervious stockinette. A second prep with Chloraprep was performed prior to application of Iodine impregnated skin protection. A timeout to confirm correct identity, side and site, procedure, allergies, anesthesia, and medical concerns was performed. With the knee in some flexion, a midline incision was made overlying the knee. Full thickness skin flaps were raised once the extensor mechanism was encountered. These were raised medially and laterally. Any bleeding was controlled with electrocautery. Once the extensor mechanism was fully exposed, a medial parapatellar arthrotomy was performed in a flexed position. All bleeding from the arthrotomy and the geniculate arteries was coagulated. A medial subperiosteal peel was performed with electrocautery to the midcoronal plane. The fat pad was removed while keeping the patellar tendon protected. The anterior distal femur synovium was removed for later visualization. The ACL and PCL were resected and the anterior horn of the lateral meniscus was transected. The knee was then flexed with the patella everted. Using a step drill, and based on preoperative templating, the femoral canal was entered. This was done with a step drill without any difficulty. The intramedullary distal femoral cut guide was inserted, set to a 4 degree valgus cut and 9mm cut thickness. The distal femoral cut guide was then held in position and pinned. With the soft tissues protected, the distal cut was performed. This was passed over a few times to ensure a planar cut. I then turned attention to the tibia. The extramedullary guide was placed onto the leg. The distal aspect was slid medial to adjust for position of center of ankle and stay in line with shaft of the tibia. Approximately 5 degrees of posterior slope was kept in the proximal cutting guide. The center of the guide was aligned with the PCL. The stylus was used to assess cut thickness. The medial side, most involved side, was set for a 4mm cut. This was then held in position and pinned into place with 2 additional pins and a cross pin for stability. The medial and lateral collateral ligaments were protected and the cut was performed. With this completed, it was assessed and noted to be of appropriate dimensions. The guide was removed. A spacer block was inserted and the knee was brought into extension. The 6mm spacer block provided full extension, without hyperextension and with stability of both the medial and lateral collateral ligaments was assessed. The pins from the femur and the tibia were then removed. The distal femur was then sized. The anterior stylus was placed onto the lateral ridge of the anterior femur. This indicated a size 6 narrow femur. The external rotation of the guide was adjusted to 3 degrees to match the epicondylar axis, perpendicular to Sevier?s line. The 4-in-1 cutting guide was the placed. The posterior medial femur cut was evaluated and appeared of good thickness. The spacer block was inserted underneath the cutting guide and stability was confirmed in 90 degrees of flexion. An gloria wing was used to confirm appropriate position of the anterior cut to avoid notching. This cutting guide was ensured to be flush on the cut surface and then pinned into place with headed pins. While protecting the soft tissues, quad tendon, and collateral ligaments, the anterior and posterior cuts were performed with a saw. The central two pins were removed and the posterior and anterior chamfers were cut next. The notch-cutting guide was placed. This was pinned to lateralize the femoral component as much as possible while keeping it flush on the cut surface. This was then pinned into position. A reciprocating saw was used to make the notch cut. A rasp smoothed the cut surfaces. The medial and lateral menisci were removed. A trial femoral component was then inserted, impacted down to the cut surfaces, and the lug holes were drilled. A provisional trial tibial component was placed and the knee was brought through range of motion. There was noted to be excellent extension and flexion. There was no significant instability. The patella was tracking without thumbs. A size 6mm polyethylene component provided the best range of motion and stability with less than 2mm gapping with medial and lateral stress and full extension without significant hyperextension. The tibial cut surface was fully exposed. The tibia was then sized as a 4. The tibia had been previously marked during trialing to correspond to the center of the tibial component to help with rotation. The trial was aligned to this gerardo, approximately rotated to the medial 1/3rd of the tibial tubercle. The trial was pinned into place. The tibia was prepared with a reamer and a keel punch and lug holes. The trial components were removed. The final components were opened on the back table. The periosteal and capsular tissues, especially posteriorly, around the knee were then systematically injected with a periarticular cocktail consisting of 246mg of Ropivacaine, 0.5mg of Epinephrine, 0.08mg of Clonidine, and 30mg of Ketorolac, diluted to 100cc. On the back table, with the implants opened. The cementless knee components were placed. Starting with the tibial component, the tibia was subluxed anteriorly and the lug holes of the component were lined up. The tibia was then impacted with an impactor and mallet until the tibial component was in contact with the tibia. Then, the femoral component was inserted. The lug holes were aligned and the component was impacted into position. The final polyethylene component was inserted. The knee was irrigated with Surgiphor Betadine solution. This was allowed to sit in the knee for 3 minutes and then it was irrigated out with saline. The patella was tracking with a no-thumbs technique. A complete synovectomy was performed around the periphery of the patella. A fairly minimal lateral facetectomy was also performed. The capsule was then reapproximated with a No. 1 Vicryl at multiple locations. The capsule was finally closed with a No. 2 Stratafix, barbed suture. Deep tissues were then reapproximated with 0 Vicryl and 2-0 Vicryl. The skin was closed with a running 3-0 Monocryl in a subcuticular fashion. This was reinforced with skin glue. A Mepilex silver dressing was applied along with a [id number] BAUTISTA wrap. A CryoCuff was applied. Clara was transferred to the hospital bed without difficulty an suffering no apparent complication. Clara has a good prognosis. Physical therapy will start today and without restrictions, weight-bearing as tolerated. Aspirin 81mg BID will be used for DVT prophylaxis. Date of Procedure: 05/17/25
[2025-05-17 15:45] VITALS: TEMP 36.4
[2025-05-17 15:59] VITALS: TEMP 36.8
--- NOTE | 2025-05-17 16:05 | W.ANESPOSTOP ---
Postoperative Evaluation Date, Time and Location Date Performed: 05/17/25 Time Performed: 16:06 Patient Location: PACU Vital Signs Most Recent Imported Vital Signs: Most Recent Vital Signs Temp Pulse Resp BP Pulse Ox 36.8 C 71 19 113/62 97 05/17/25 15:59 05/17/25 13:43 05/17/25 13:43 05/17/25 13:43 05/17/25 13:43 Pain Score Most Recent Pain Score: Most Recent Pain Score Pain Level 0 05/17/25 15:59 Assessment Mental Status: Awake (Alert & Oriented to Patient Baseline) Airway and Respiratory Function: Patent airway with normal (patient baseline) respiratory exam Cardiovascular Function: Hemodynamically Stable Hydration Status: Adequately Hydrated Nausea & Vomiting: No Nausea or Vomiting Pain: Pain is tolerable per patient Peripheral Nerve Block: Regional nerve block not resolved at time of post operative discharge
[2025-05-17 16:08] VITALS: BP 102/63; PULSE 83; RESP 12; TEMP 36.4; O2SAT 95
[2025-05-17] MEDS: oxyCODONE 5 MG TAB PO (16:23)
[2025-05-17] MEDS: Tranexamic Acid 650 MG TAB 1300 MG PO (16:23)
[2025-05-17 16:37] VITALS: BP 129/58; PULSE 80; RESP 16; TEMP 36.6; O2SAT 100
--- NOTE | 2025-05-17 16:53 | PT.INIE ---
PT Notes Visit Reasons: Right knee DJD Physical Therapy Day Surgery Initial Evaluation Date: 05/17/2025 Referring Doctor: Kelsey Thomas NP/Dr. Sewell PT Orders: PT CONSULT: Status post Ortho surgery Precautions: WBAT right LE with assistive device Patient Profile/Admitting Diagnosis: Clara is a 59-year-old female presenting status post elective right TKA under spinal anesthesia by Dr. Sewell on 05/17/2025. 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 Patient is employed full-time in a school system. Patient drives. Patient independent ambulation. Patient active with kayaking and gardening. Equipment Owned/DME: None patient fitted for and issued FWW Subjective: Patient reports the back of her knee is the most painful thing. She states she has had a lot of difficulty straightening the knee flat onto any surface prior to surgery. Patient reported pain reduction after movement Objective: [] General Observation: Female semireclined on stretcher Cryo/Cuff to right knee, present Mental Status: Alert and oriented x 4, cooperative, able to follow instructions, agreeable to participate Pain: Right knee 5/10 ROM: [] Right Upper Extremity: WFL Left Upper Extremity: WFL Right Lower Extremity: Hip and ankle WFL knee 0-95 degrees active; patient rests in 5 degrees of flexion Left Lower Extremity: WFL Strength: [] BUE: 5/5 Right Lower Extremity: Hip flexion: 3/5; hip abduction: 3/5; hip extension: 3/5; knee extension: 3-/5; knee flexion: 3 -/5 ankle DF: 3/5 ; ankle PF: 3/5; patient with fair quad set requiring cues visual and tactile to initiate. Patient straight leg raise with slight lag Left Lower Extremity: 5/5 Sensation: Intact Bed Mobility/Transfers: [] Supine to sit supervision Sit to stand standby assist with cues for hand placement Stand to sit standby assist Bed to chair standby assist with FWW Gait: Ambulate with FWW 150 feet with standby assist cues for sequencing and walker management. Patient also required cues for quad activation on right during mid stance. With 2 episodes of knee instability noted Balance: [] Static Sitting: Normal Dynamic Sitting: Normal Static Standing: Good Dynamic Standing: Fair Special Tests: [] Mobility Limitations Standardized Measure [] [facility] AM-PAC 6 clicks Basic Mobility Inpatient Short Form: [] Raw Score: 22 CMS Score: 20.91% deficit Informed Consent/Education: Patient instructed in purpose of PT consult. Treatment: 50919 Packet containing TKA exercise protocol has been given to patient. Education and training on initial set of 3 reps of exercises that can be done at home have been completed with patient. Assessment: Patient is a 59-year-old female who presents with clinical signs and symptoms consistent with current/admitting diagnoses that have resulted to mobility limitations, gait instability, generalized weakness, and impairment of motor control as demonstrated by the following impairment level findings: 1. Decreased strength/motor control to right knee major muscle groups 2. Impaired standing balance 3. Limitation of joint range of motion in right knee 4. Pain right knee 5. Impaired functional activity tolerance Impairments are contributing to the following functional limitations: 1. Inability to safely ambulate without assistive device 2. Increase completion time for mobility ADL performance 3. Increased fall risk 4. Difficulty performing stairs without assistance Patient is assessed as a low complexity based on the following: History: 59-year-old female with impairment level findings, functional limitations, and past medical history as indicated above Examination: Demonstrable impairment in strength, balance, and mobility level with underlying impairments and functional limitations as documented above Presentation: Stable Decision Making: Low Goals: N/A. PT evaluation and 1-2 treatment sessions only for functional mobility training using recommended AD and for HEP instruction. Plan of Care/Treatment Plan: N/A. PT evaluation and 1-2 treatment session only for functional mobility training using recommended AD and for HEP instruction. DISCHARGE RECOMMENDATIONS: Home with HEP and outpatient PT as scheduled TREATMENT CODE/TIME: 09941, [id number] Thank you for the opportunity to participate in the care of this patient. Chelsea Stearns, PT [facility]
== END 2025-05-17 17:54 | disposition home or self-care (01) ==
LOC: SUR 11:53
PROVIDERS: PCP Nurse Practitioner; Visit Provider Student in an Organized Health Care Education/Training Program
PROC: (CPT 27447; principal; 2025-05-17 15:00)
DX: M17.11 Unilateral primary osteoarthritis, right knee (principal); G89.18 Other acute postprocedural pain
CPT/HCPCS: 27447; 64447; 97110; 97161; C1776; J0166; J0665; J0666; J0690; J1100; J2003; J2250; J2371; J2401; J2405; J2704

== ENCOUNTER 2025-05-30 11:52 | Outpatient (CLI) | payer BC, SELFPAY ==
--- NOTE | 2025-05-30 09:45 | DI.RAD_ITS ---
Exam(s) XR STANDING ALIGNMENT XR KNEE RT 1V EXAM: XR STANDING ALIGNMENT and XR knee RT 1 V CLINICAL HISTORY: 1ST POST OP S/P R TKA. TECHNIQUE: 2D digital imaging was performed. Five images were obtained. COMPARISON: CR XR STANDING ALIGNMENT from 05/09/2025 CR XR KNEE RT 1V from 05/09/2025 FINDINGS: BONES: The hips are well maintained. Since the prior examination, the patient has undergone a right total knee arthroplasty. The orthopedic hardware appears in good position. No suspicious lucencies are seen around the orthopedic hardware. In the left knee, there is mild narrowing and spurring in the medial femoral tibial joint. The ankles are well maintained.There is no significant leg length discrepancy. SOFT TISSUE: Normal. IMPRESSION: 1. Interval placement of a right total knee arthroplasty. 2. Mild degenerative changes of the left knee. DATA REPOSITORY: RADIATION DOSE DELIVERED:
== END 2025-05-30 11:53 | disposition home or self-care (01) ==
LOC: DIORS 11:53
PROVIDERS: PCP Nurse Practitioner; Visit Provider Physician Assistant
DX: Z96.651 Presence of right artificial knee joint (principal); M17.12 Unilateral primary osteoarthritis, left knee
CPT/HCPCS: 73560; 77073

== ENCOUNTER → 2025-07-14 04:03 | Outpatient (CLI) | payer BC, SELFPAY ==
--- NOTE | 2025-07-14 14:26 | DI.DEXA_ITS ---
Exam(s) XR DEXA BONE DENSITY W/WO MONE EXAM: XR DEXA BONE DENSITY W/WO MONE CLINICAL HISTORY: ANKYLOSING SPONDYLITIS SPINE M45.9 OSTEOPENIA M85.80 HIGH RISK FX Z91.89 TECHNIQUE: COMPARISON: Comparison examination is 09/11/2007 FINDINGS: Lateral Spine Image: Unremarkable. No compression deformities identified. Left hip: Total T-Score: -0.8. This compares to 0.3 on the prior examination. Total Z-Score: 0.1 T- and Z-scores: There has been decrease in the bone mineral density, but no evidence of osteoporosis. Lumbar Spine: Total T-Score: -1.4. Compares to -0.6 on the prior examination. Total Z-Score: 0.1 T- and Z-scores: There has been a decrease in the bone mineral density, but no evidence of osteoporosis. IMPRESSION: No evidence of osteoporosis.
== END ==
PROVIDERS: PCP Family Medicine; Visit Provider Nurse Practitioner Family
DX: M85.89 Other specified disorders of bone density and structure, multiple sites; Z91.89 Other specified personal risk factors, not elsewhere classified
CPT/HCPCS: 77080